=== PATIENT | female | born 1960 | race Caucasian/White ===

== ENCOUNTER 2023-08-12 08:07 | Outpatient (CLI) | payer BC | END 2023-08-12 08:08 | disposition home or self-care (01) | LOC: BICMAMMO 08:07 | PROVIDERS: ATTEND Nurse Practitioner Family | DX: N63.42 Unspecified lump in left breast, subareolar (principal); D05.91 Unspecified type of carcinoma in situ of right breast; N60.02 Solitary cyst of left breast | CPT/HCPCS: 77066; G0279 ==

== ENCOUNTER 2024-08-17 08:06 | Outpatient (CLI) | payer BC | END 2024-08-17 08:07 | disposition home or self-care (01) | LOC: BICMAMMO 08:06 | PROVIDERS: ATTEND Surgery | DX: Z12.31 Encounter for screening mammogram for malignant neoplasm of breast (principal); N64.89 Other specified disorders of breast; Z80.3 Family history of malignant neoplasm of breast; Z85.3 Personal history of malignant neoplasm of breast; Z98.890 Other specified postprocedural states | CPT/HCPCS: 77063; 77067 ==

== ENCOUNTER 2024-08-31 08:04 | Outpatient (CLI) | payer BC | END 2024-08-31 08:05 | disposition home or self-care (01) | LOC: BICMAMMO 08:04 | PROVIDERS: ATTEND Surgery | DX: N64.89 Other specified disorders of breast (principal) | CPT/HCPCS: G0279 ==